=== PATIENT | male | born 1955 | race Caucasian/White ===

== ENCOUNTER 2020-04-30 23:05 | Emergency (ER) | payer OTHER ==
[~2020-04-30] VITALS: Ht 172.7 cm; Wt 90.7 kg
--- NOTE | 2020-04-30 23:10 | NUR ---
PT BIBPD FOR HIGH BP AND BLOOD SUGAR. PT AAOX4, VSS, RESPIRATIONS EVEN AND UNLABORED ON RA W/ NAD NOTED. PT CONNECTED TO THE MONITOR AND POX.
[2020-04-30] MEDS ORDERED: INSULIN REGULAR, HUMAN 100 UNIT/ML 10 ML VIAL ONE (23:27)
[2020-04-30] MEDS: INSULIN REGULAR, HUMAN 100 UNIT/ML 10 ML VIAL SQ ONE (23:29)
[2020-05-01] MEDS: IV NS 0.9% 1,000 ML BAG IV ONE (00:27)
--- NOTE | 2020-05-01 02:23 | NUR ---
IV removed. Catheter intact and site benign. Pressure and 4x4 applied to site. No bleeding noted.
--- NOTE | 2020-05-01 02:23 | NUR ---
Patient discharged to [facility] in stable condition. Written and verbal after care instructions given. Patient verbalizes understanding of instruction.
[2020-05-01 02:26] VITALS: BP 148/84
== END 2020-05-01 02:26 ==
LOC: ER 23:09
DX: E11.65 Type 2 diabetes mellitus with hyperglycemia (principal); I10 Essential (primary) hypertension
CPT/HCPCS: 82962 ×4; 96360; 96372; 99283; J1815; J7030